=== PATIENT | female | born 1955 | race Caucasian/White ===

== ENCOUNTER 2018-04-23 14:17 | Emergency (ER) | payer OTHER ==
[~2018-04-23] VITALS: Ht 162.6 cm; Wt 55.3 kg
[2018-04-23] MEDS ORDERED: AMOXICILLIN500 M1 (14:35)
== END 2018-04-23 20:42 | disposition home or self-care (01) ==
LOC: ER 14:17
DX: L02.612 Cutaneous abscess of left foot (principal)

== ENCOUNTER 2022-11-10 05:58 | Day surgery (SDC) | payer OTHER ==
[~2022-11-10] VITALS: Ht 162.6 cm; Wt 55.3 kg
[~2022-11-10 05:58] MED LIST: AMOXICILLIN500 M1; ARIMIDEX
== END 2022-11-10 17:35 | disposition home or self-care (01) ==
LOC: CIR.AMB 05:58
PROVIDERS: ATTEND Surgery
DX: N60.81 Other benign mammary dysplasias of right breast (principal); N60.82 Other benign mammary dysplasias of left breast; N60.32 Fibrosclerosis of left breast; N60.31 Fibrosclerosis of right breast; R92.1 Mammographic calcification found on diagnostic imaging of breast; Z91.041 Radiographic dye allergy status; Z15.01 Genetic susceptibility to malignant neoplasm of breast; Z88.5 Allergy status to narcotic agent; Z20.822 Contact with and (suspected) exposure to COVID-19
CPT/HCPCS: 19303; 38525; 38792; A9541

== ENCOUNTER 2024-05-22 10:27 | Outpatient (CLI) | payer OTHER | END 2024-05-22 10:33 | disposition home or self-care (01) | LOC: SONOGRAMA 10:27 | PROVIDERS: ATTEND Pathology Anatomic Pathology & Clinical Pathology | DX: D34 Benign neoplasm of thyroid gland (principal); E07.89 Other specified disorders of thyroid; E04.2 Nontoxic multinodular goiter ==